=== PATIENT | male | born 1985 | race Caucasian/White ===

== ENCOUNTER → 2018-03-28 05:54 | Outpatient (CLI) | payer OTHER, SELFPAY ==
--- NOTE | 2018-03-28 | DI.MRI.S_ITS ---
PROCEDURE: MR KNEE RT WO CON INDICATIONS: UNSTABLE KNEE TECHNIQUE: Noncontrast sagittal PD fast spin echo and T2 fast spin echo with fat saturation, sagittal 3-D FLASH with fat saturation; coronal T1 spin echo and PD fast spin echo with fat saturation, and axial PD fast spin echo with fat saturation through the knee. COMPARISON: None. FINDINGS: Image quality: Excellent. Menisci: The medial and lateral menisci demonstrate normal morphology and internal signal. The meniscal root ligaments appear intact. Cruciate ligaments: The anterior and posterior cruciate ligaments appear intact. The anterior cruciate ligament is mildly thickened with increased internal signal compatible with sprain (grade one injury) Medial structures: The medial collateral ligament appears intact. The posterior oblique ligament, semimembranosus tendon insertions, oblique popliteal ligament, and meniscocapsular junction appear intact. Visualized portions of the pes anserinus tendons appear normal. No abnormal bursal fluid. Lateral structures: The lateral collateral ligament, long and short heads of the biceps femoris tendon appear intact. The popliteus tendon appears normal; the popliteofibular ligament appears intact. Edema is noted in the popliteus musculature most compatible with muscle strain. The posterosuperior and anteroinferior popliteomeniscal fascicles appear intact. The arcuate and fabellofibular ligaments appear intact, on either side of the lateral inferior geniculate artery. Iliotibial band appears normal. Anterior structures: The quadriceps and patellar tendons appear intact. Patellar alignment is normal. No femoral trochlear dysplasia or ventral trochlear prominence. No edema in the infrapatellar fat pad. Bones and cartilage: Nondisplaced fracture involving the posterior margin of the lateral tibial plateau. Osseous contusion noted in the anterior weightbearing margin of the lateral femoral condyle. The cartilage of the medial and lateral femorotibial compartments, as well as the patellofemoral compartment, appears normal in thickness. Joint space: There is a moderate-sized joint effusion. No popliteal cyst. Normal appearing synovial plicae are incidentally noted. IMPRESSION: 1. Nondisplaced fracture of the posterior margin of the lateral tibial plateau (series 8, images 8-14). 2. Osseous contusions involving the lateral femoral condyle and lateral tibial plateau. 3. Anterior cruciate ligament sprain. 4. Joint effusion. Dictated by: Laura Nix MD, PhD on 03/28/2018 at 9:47 Approved by: Laura Nix MD, PhD on 03/29/2018 at 9:52
== END ==
PROVIDERS: Visit Provider Nurse Practitioner Family
DX: S82.144A Nondisplaced bicondylar fracture of right tibia, initial encounter for closed fracture (principal); S80.01XA Contusion of right knee, initial encounter; S83.511A Sprain of anterior cruciate ligament of right knee, initial encounter; M25.461 Effusion, right knee
CPT/HCPCS: 73721

== ENCOUNTER → 2021-04-07 14:02 | Outpatient (CLI) | payer OTHER, SELFPAY ==
--- NOTE | 2021-04-07 14:03 | DI.MRI.S_ITS ---
PROCEDURE: MR KNEE LT WO CON INDICATIONS: Unspecified internal derangement of left knee TECHNIQUE: Noncontrast sagittal PD fast spin echo and T2 fast spin echo with fat saturation, sagittal 3-D FLASH with fat saturation; coronal T1 spin echo and PD fast spin echo with fat saturation, and axial PD fast spin echo with fat saturation through the knee. COMPARISON: [facility] Outside Film, CR, XR KNEE 3 VIEWS LEFT, 02/26/2021, 17:52. FINDINGS: Image quality: Excellent. Menisci: Small amount of nonspecific intermediate signal intensity is seen within the peripheral portion of the body and posterior horn of the medial meniscus without extension to an articular surface. The lateral meniscus demonstrates normal morphology and internal signal. The meniscal root ligaments appear intact. Cruciate ligaments: The anterior and posterior cruciate ligaments appear intact. Medial structures: The medial collateral ligament appears intact. The semimembranosus tendon insertions and meniscocapsular junction appear intact. Visualized portions of the pes anserinus tendons appear normal. No abnormal bursal fluid. Lateral structures: The lateral collateral ligament, long and short heads of the biceps femoris tendon appear intact. The popliteus tendon appears intact. No signs of posterolateral corner injury. Iliotibial band appears normal. Anterior structures: Mild patella valentina. Mild patellar tendinosis. The distal quadriceps tendon is intact. No femoral trochlear dysplasia or ventral trochlear prominence. Mild edema is seen at the superolateral aspect of Hoffa's fat pad. Bones and cartilage: No bone marrow contusions or fractures. The cartilage of the medial and lateral femorotibial compartments appears normal in thickness. Very mild surface irregularity is seen in the articular cartilage at the medial patellar facet. Joint space: There is a physiologic amount of joint fluid. A trace amount of medial popliteal fluid is present. Subcutaneous soft tissue edema is seen in the prepatellar and pretibial soft tissues. IMPRESSION: 1. No acute trabecular bone injury. Intact cruciate and collateral ligaments. No meniscal tear is seen. 2. Mild patellar tendinosis. Mild patella valentina. 3. Small amount of edema at the superolateral aspect of Hoffa's fat pad is nonspecific, but can be seen in the setting of lateral femoral condyle-patellar tendon friction syndrome. 4. Nonspecific soft tissue edema is seen in the prepatellar and pretibial subcutaneous tissues. Dictated by: Clay Schmitt M.D. on 04/07/2021 at 16:20 Approved by: Clay Schmitt M.D. on 04/07/2021 at 16:33
== END ==
PROVIDERS: PCP Registered Nurse; Referring Provider Orthopaedic Surgery Foot and Ankle Surgery; Visit Provider Orthopaedic Surgery Foot and Ankle Surgery
DX: M23.92 Unspecified internal derangement of left knee (principal); M79.89 Other specified soft tissue disorders
CPT/HCPCS: 73721